=== PATIENT | male | born 1950 | race Caucasian/White ===

== ENCOUNTER 2019-04-23 14:44 | Inpatient (IN) ==
--- NOTE | 2019-04-23 15:33 | RAD ---
HISTORYSOBSTUDYCHEST, 1 VIEWCOMPARISONFINDINGSThe trachea is midline. The cardiac silhouette is enlarged but stable compared to March 22, 2019. There are sternotomy wires from CABG surgery. The lungs are clear. Left shoulder prosthesis is in place.. The lungs are clear without focal infiltrate or effusion. The bony thorax is unremarkable.IMPRESSIONStable cardiomegaly postsurgical chest but no acute infiltrates or effusions.Electronically signed by: CAT SIDDIQUI (Apr 23, 2019 15:32:05)
[2019-04-23 15:44] LABS: BASOPHILS % (AUTO) 0.2 % (0.2-1.0); EOSINOPHILS % (AUTO) 0.1 % (0.9-2.9); HEMATOCRIT 46.9 % (42.0-54.0); HEMOGLOBIN 15.8 g/dL (13.5-18.0); LYMPHOCYTES # (AUTO) 0.4 X10^3/uL (1.3-2.9); LYMPHOCYTES % (AUTO) 2.4 % (21.0-51.0); MEAN CORPUSCULAR HEMOGLOBIN 29.7 pg (27.0-34.0); MEAN CORPUSCULAR HGB CONC 33.6 g/dL (33.0-35.0); MEAN CORPUSCULAR VOLUME 88.4 fL (80.0-100.0); MEAN PLATELET VOLUME 9.9 fL (7.4-11.0); MONOCYTES # (AUTO) 0.6 x10^3/uL (0.3-0.8); MONOCYTES % (AUTO) 3.8 % (0.0-13.0); NEUTROPHILS % (AUTO) 93.5 % (42.0-75.0); PLATELET COUNT 149 X10^3/uL (150.0-450.0); RED BLOOD COUNT 5.31 X10^6/uL (4.7-6.0); RED CELL DISTRIBUTION WIDTH 13.9 % (11.6-16.5)
[2019-04-23 15:52] LABS: ALANINE AMINOTRANSFERASE 20 Units/L (12-78); ALBUMIN 3.7 g/dL (3.4-5.0); ALKALINE PHOSPHATASE 70 Units/L (46-116); ASPARTATE AMINO TRANSFERASE 13 Units/L (15-37); BLOOD UREA NITROGEN 16 mg/dL (7-18); CALCIUM 9.5 mg/dL (8.5-10.1); CARBON DIOXIDE 26.7 mmol/L (21-32); CHLORIDE 100 mmol/L (98-107); COR NA(FOR HYPERGLY) 139 mmol/L (136-145); CREATININE 1.21 mg/dL (0.70-1.30); SODIUM 137 mmol/L (136-145); TOTAL PROTEIN 7.6 g/dL (6.4-8.2); eGFR NON BLACK RACES > 60 (>60)
[2019-04-23] MEDS: DUONEB 0.5 MG/3 MG (3 mL) NEB SCH ×3 (15:52→20:23)
[2019-04-23 16:14] LABS: BAND NEUTROPHILS % 11 % (0-10); PLATELET MORPHOLOGY COMMENT NORMAL (NORMAL)
[2019-04-23] MEDS: FORTAZ or TAZICEF VIAL INJ 1 G in NS 100 ML IV + SPIKE MINIBAG* 100 ML IV SCH ×2 (16:34→21:47)
[2019-04-23] MEDS: NS 1000 ML 1,000 ML IV SCH (16:35)
[2019-04-23] MEDS: LEVAQUIN PREMIX IV 500 MG 500 MG/100 ML BAG IV SCH (16:35)
[2019-04-23 19:08] VITALS: BMI 30.1
[2019-04-24] MEDS: NS 1000 ML 1,000 ML IV SCH ×2 (05:01→18:12)
[2019-04-24] MEDS: FORTAZ or TAZICEF VIAL INJ 1 G in NS 100 ML IV + SPIKE MINIBAG* 100 ML IV SCH ×3 (05:01→21:21)
[2019-04-24 06:08] LABS: BASOPHILS % (AUTO) 0.4 % (0.2-1.0); EOSINOPHILS % (AUTO) 0.1 % (0.9-2.9); HEMATOCRIT 40.3 % (42.0-54.0); HEMOGLOBIN 13.7 g/dL (13.5-18.0); LYMPHOCYTES % (AUTO) 7.8 % (21.0-51.0); MEAN CORPUSCULAR HEMOGLOBIN 29.8 pg (27.0-34.0); MEAN CORPUSCULAR HGB CONC 34.1 g/dL (33.0-35.0); MEAN CORPUSCULAR VOLUME 87.6 fL (80.0-100.0); MEAN PLATELET VOLUME 9.8 fL (7.4-11.0); MONOCYTES # (AUTO) 1.1 x10^3/uL (0.3-0.8); MONOCYTES % (AUTO) 8.7 % (0.0-13.0); NEUTROPHILS # (AUTO) 10.8 x10^3/uL (2.2-4.8); PLATELET COUNT 126 X10^3/uL (150.0-450.0); RED CELL DISTRIBUTION WIDTH 13.9 % (11.6-16.5)
[2019-04-24 06:31] LABS: ALANINE AMINOTRANSFERASE 15 Units/L (12-78); ALBUMIN 2.8 g/dL (3.4-5.0); ALKALINE PHOSPHATASE 54 Units/L (46-116); ASPARTATE AMINO TRANSFERASE 12 Units/L (15-37); BLOOD UREA NITROGEN 15 mg/dL (7-18); CALCIUM 8.5 mg/dL (8.5-10.1); CARBON DIOXIDE 26.7 mmol/L (21-32); CHLORIDE 102 mmol/L (98-107); COR CA(FOR HYPOALB) 9.5 mg/dL (8.5-10.1); SODIUM 137 mmol/L (136-145); TOTAL PROTEIN 6.2 g/dL (6.4-8.2); eGFR NON BLACK RACES > 60 (>60)
[2019-04-24] MEDS ORDERED: POTASSIUM CHL 40 MEQ/NS 0.45% 500 ML IV PRN (08:07)
[2019-04-24] MEDS ORDERED: POTASSIUM CHLORIDE LIQ 20 MEQ UDC PO PRN (08:07)
[2019-04-24] MEDS ORDERED: K-RIDER 10 MEQ/NS 100 ML 10 MEQ/100 ML BAG IV PRN (08:07)
[2019-04-24] MEDS ORDERED: K-DUR TAB 20 MEQ PO PRN (08:07)
[2019-04-24] MEDS ORDERED: MICRO K EXTEN CAP 10 MEQ PO PRN (08:07)
[2019-04-24] MEDS ORDERED: KLOR-CON PO PRN (08:07)
[2019-04-24] MEDS ORDERED: POTASSIUM CHL 60 MEQ/NS 0.45% 500 ML IV PRN (08:07)
[2019-04-24] MEDS ORDERED: AVODART PO SCH (09:00)
[2019-04-24] MEDS: DUONEB 0.5 MG/3 MG (3 mL) NEB SCH ×4 (09:04→21:10)
[2019-04-24] MEDS: LEVAQUIN PREMIX IV 500 MG 500 MG/100 ML BAG IV SCH (10:13)
[2019-04-24] MEDS: ZYLOPRIM PO SCH (10:14)
[2019-04-24] MEDS: COLACE CAP 100 MG PO SCH (10:14)
[2019-04-24] MEDS: FLOMAX PO SCH (10:14)
[2019-04-24] MEDS: ZyrTEC TAB 10 MG PO SCH (10:14)
[2019-04-24] MEDS: MAGNESIUM SULFATE 1 GRAM/100 mL PREMIX 1 GM/100 ML BAG IV PRN ×4 (15:30→19:30)
--- NOTE | 2019-04-24 16:20 | DR.H&P ---
H&P - History & Physical for Day of: H&P Date: 04/23/19 - Chief Complaint Chief Complaint: COUGH, SOB, NAUSEA, VOMITING, WEAKNESS - History of Present Illness History of Present Illness: IS A 68 YEAR OLD PATIENT OF OURS WHO PRESENTED TO THE HOSPITAL A DIRECT ADMISSION DUE TO COMPLAINTS OF COUGH, SHORTNESS OF BREATH, NAUSEA, VOMITING, AND WEAKNESS. PATIENT REPORTED THAT HIS WAS RECENTLY HOSPITALIZED FOR PNEUMONIA AND INFLUENZA. SYMPTOMS REPORTEDLY STARTED ONE DAY PRIOR TO ADMISSION. ON ARRIVAL TO THE HOSPITAL, VITALS WERE: WBC 15.0, PLT COUNT 149, GLUCOSE 183, AST 13. BLOOD AND SPUTUM CULTURES WERE OBTAINED. PRELIMINARY SPUTUM CULTURES REVEAL GROWTH OF MANY AND MODERATE IN CHAINS GRAM POSITIVE COCCI. A CHEST XRAY WAS OBTAINED AND REVEALED: STABLE CARDIOMEGALY POSTSURGICAL CHEST BUT NO ACUTE INFILTRATES OR EFFUSIONS. HE WAS STARTED ON NORMAL SALINE AT 75 ML/HR, IV FORTAZ, IV LEVAQUIN, RESPIRATORY TX, TAMIFLU 75MG PO BID, THE POTASSIUM AND MAGNESIUM PROTOCOLS, AND HOME MEDICATIONS WERE RESUMED. WE WILL CONTINUE WITH CURRENT PLAN OF CARE TODAY. OTHERWISE, WE WILL FOLLOW UP WITH AM LABS AND CONTINUE TO MONITOR. - Past Medical History Past Medical History: [place], Hypertension, Dyslipidemia - Past Surgical History Surgical History: CABG/Valve Surgery, Joint Replacement, Ortho Surgery - Family History Family Medical History: Diabetes Mellitus, Coronary Artery Disease, Hypertension - Social History Does patient currently use any type of tobacco product: No Have you used tobacco products in the last 12 months: No Type of Tobacco Use: None Does any household member use tobacco: No Alcohol Use: None Drug Use: None Prescription drug monitoring program results: PDMP was not reviewed - Medications Home Medications: No Known Drug Allergies Allergy (Verified 03/22/19 19:02) CONTINUE taking the following medications docusate sodium [Colace] 100 mg PO DAILY 04/23/19 [History] - Review of Systems Constitutional: Fever, Weakness Eyes: No Symptoms Reported ENT: No Symptoms Reported Respiratory: Shortness of Breath, Wheezing Cardiovascular: No Symptoms Reported Gastrointestinal: Nausea, Vomiting Genitourinary: No Symptoms Reported Musculoskeletal: No Symptoms Reported Skin: No Symptoms Reported Neurological: Weakness - Physical Exam Vital Signs: Temperature 98.6 F Pulse Rate [Right Brachial] 75 Pulse Rate [Left Brachial] 87 Pulse Rate 83 Respiratory Rate 18 Blood Pressure [Right Arm] 127/69 Blood Pressure [Left Arm] 103/71 O2 Sat by Pulse Oximetry 90 Oriented: Normal Eyes: Normal Ear: Normal Nose: Normal Throat: Normal Respiratory: Wheezes Throughout Cardiovascular: Normal : Normal Auscultation: Bowel Sounds: Normal Palpation: Normal Tenderness: Normal Skin: Normal Musculoskeletal: Normal Psychiatric: Anxiety Mood Description: Calm Affect: Normal Speech Pattern: Clear - Assessment/Plan (1) Bronchopneumonia Status: Acute Plan: IV FORTAZ, IV LEVAQUIN, RESPIRTORY TX, SUPPLEMENTAL OXYGEN, CONTINUE TO MONITOR (2) Nausea & vomiting Qualifiers: Vomiting Intractability: non-intractable Status: Acute (3) Generalized weakness Status: Acute - Allergies Allergies/Adverse Reactions: Allergies Allergy/AdvReac Type Severity Reaction Status Date / Time No Known Drug Allergies Allergy Verified 03/22/19 19:02
[2019-04-24] MEDS: TAMIFLU PO SCH (20:43)
[2019-04-24] MEDS ORDERED: CRESTOR TAB 10 MG PO SCH (21:00)
[2019-04-25] MEDS: NS 1000 ML 1,000 ML IV SCH (02:31)
[2019-04-25] MEDS: FORTAZ or TAZICEF VIAL INJ 1 G in NS 100 ML IV + SPIKE MINIBAG* 100 ML IV SCH (05:08)
[2019-04-25 06:07] LABS: BASOPHILS # (AUTO) 0.1 X10^3/uL (0.0-0.1); BASOPHILS % (AUTO) 0.6 % (0.2-1.0); EOSINOPHILS # (AUTO) 0.1 x10^3/uL (0.0-0.2); EOSINOPHILS % (AUTO) 0.9 % (0.9-2.9); HEMATOCRIT 42.2 % (42.0-54.0); HEMOGLOBIN 14.2 g/dL (13.5-18.0); LYMPHOCYTES % (AUTO) 6.9 % (21.0-51.0); MEAN CORPUSCULAR HEMOGLOBIN 29.8 pg (27.0-34.0); MEAN CORPUSCULAR HGB CONC 33.6 g/dL (33.0-35.0); MEAN CORPUSCULAR VOLUME 88.5 fL (80.0-100.0); MEAN PLATELET VOLUME 9.5 fL (7.4-11.0); MONOCYTES # (AUTO) 1.2 x10^3/uL (0.3-0.8); MONOCYTES % (AUTO) 8.7 % (0.0-13.0); NEUTROPHILS # (AUTO) 11.6 x10^3/uL (2.2-4.8); NEUTROPHILS % (AUTO) 82.9 % (42.0-75.0); PLATELET COUNT 138 X10^3/uL (150.0-450.0); RED BLOOD COUNT 4.76 X10^6/uL (4.7-6.0); RED CELL DISTRIBUTION WIDTH 14.2 % (11.6-16.5)
[2019-04-25 06:33] LABS: ALANINE AMINOTRANSFERASE 16 Units/L (12-78); ALBUMIN 2.8 g/dL (3.4-5.0); ALKALINE PHOSPHATASE 57 Units/L (46-116); ASPARTATE AMINO TRANSFERASE 15 Units/L (15-37); BLOOD UREA NITROGEN 9 mg/dL (7-18); CALCIUM 8.5 mg/dL (8.5-10.1); CARBON DIOXIDE 26.7 mmol/L (21-32); CHLORIDE 104 mmol/L (98-107); COR CA(FOR HYPOALB) 9.5 mg/dL (8.5-10.1); COR NA(FOR HYPERGLY) 138 mmol/L (136-145); CREATININE 0.95 mg/dL (0.70-1.30); SODIUM 138 mmol/L (136-145); TOTAL PROTEIN 6.5 g/dL (6.4-8.2); eGFR NON BLACK RACES > 60 (>60)
[2019-04-25] MEDS: DUONEB 0.5 MG/3 MG (3 mL) NEB SCH (08:25)
[2019-04-25] MEDS: ZyrTEC TAB 10 MG PO SCH (08:32)
[2019-04-25] MEDS: TAMIFLU PO SCH (08:32)
[2019-04-25] MEDS: LEVAQUIN PREMIX IV 500 MG 500 MG/100 ML BAG IV SCH (08:32)
[2019-04-25] MEDS: COLACE CAP 100 MG PO SCH (08:32)
[2019-04-25] MEDS: FLOMAX PO SCH (08:32)
[2019-04-25] MEDS: ZYLOPRIM PO SCH (08:32)
[2019-04-25 09:30] VITALS: BP 128/73
== END 2019-04-25 10:50 | disposition home or self-care (01) | DRG 195 ==
LOC: MED/SURG
PROVIDERS: ADMIT Internal Medicine; ATTEND Internal Medicine
DX: R06.02 Shortness of breath; R53.1 Weakness; J18.8 Other pneumonia, unspecified organism; R11.2 Nausea with vomiting, unspecified
CPT/HCPCS: 36415; 71010; 71045; 80053; 83735; 85025; 87040; 87070; 87205; 87502; 94640; 94760; A4216; A4222; G0378; G9035; J0713; J1956; J3475; J7030; J7050; J7620